=== PATIENT | male | born 1990 ===

== ENCOUNTER 2019-09-03 11:42 | Emergency (ER) | payer OTHER ==
[~2019-09-03] VITALS: Ht 185.4 cm; Wt 68.0 kg
[~2019-09-03 11:42] MED LIST: AMOX500; CEPH500; CEPH500 PO; HYDACE5; HYDACE5 PO; NAPR500 PO; OXYACE10; PENVK500 PO; RXCODACET PO; RXHYDACE PO; RXPENVK250 PO; SULTRIDS PO
== END 2019-09-03 13:32 | disposition home or self-care (01) ==
LOC: ER 11:42
DX: L02.415 Cutaneous abscess of right lower limb (principal); F17.200 Nicotine dependence, unspecified, uncomplicated; Z87.828 Personal history of other (healed) physical injury and trauma
CPT/HCPCS: 99282

== ENCOUNTER → 2019-10-02 | Outpatient (CLI) | payer SELFPAY ==
[2019-10-03 09:09] LABS: HBSAG SCREEN Negative (Negative); HEP A AB, IGM Negative (Negative); HEP B CORE AB, IGM Negative (Negative); HEP C VIRUS AB <0.1 (0.0-0.9); HIV SCREEN 4TH GENERATION WRFX Non Reactive (Non Reactive)
== END | disposition home or self-care (01) ==
LOC: LAB SHORT 15:29 → LAB EV 15:29
PROVIDERS: Physician Assistant Medical
DX: F19.11 Other psychoactive substance abuse, in remission (principal)
CPT/HCPCS: 80074; 86592; 87389